=== PATIENT | female | born 1985 | race Caucasian/White ===

== ENCOUNTER → 2019-03-07 18:15 | Observation (INO) ==
[2019-03-07 17:05] LABS: Basophils % 0.2 %; Eosinophils # 0.2 K/mcL (0.0-0.6); Eosinophils % 1.6 %; Hematocrit 32.4 % (35.3-44.9); Immature Granulocytes % 0.4 % (0-4); Lymphocytes # 2.1 K/mcL (0.6-4.6); Lymphocytes % 17.7 %; Mean Corpuscular Hemoglobin 26.6 pg (28.0-33.3); Mean Corpuscular Volume 78.5 fL (83.0-100.0); Monocytes # 0.5 K/mcL (0.0-1.3); Monocytes % 4.3 %; Neutrophils # 8.8 K/mcL (1.6-8.9); Platelet Count 356 K/mcL (140-400); Red Blood Count 4.13 M/mcL (3.82-4.97); Red Cell Distribution Width 13.6 % (11.5-14.5); Segmented Neutrophils % 75.8 %
[2019-03-07 17:22] LABS: Alanine Aminotransferase 16 Units/L (7-52); Aspartate Amino Transferase 15 Units/L (13-39); BUN/Creatinine Ratio 14 (6-26); Blood Urea Nitrogen 10 mg/dL (6-20); Lactate Dehydrogenase 108 Units/L (140-271); Uric Acid 4.7 mg/dL (2.3-7.6); eGFR For Non-African Americans > 60 (> 60)
[2019-03-07 17:26] LABS: Amphetamine Screen,Urine Negative ng/mL (Cutoff=1000); Barbiturate Screen,Urine Negative ng/mL (Cutoff=200); Benzodiazepines Screen,Urine Negative ng/mL (Cutoff=200); Cannabinoid Screen,Urine Negative ng/mL (Cutoff = 50); Cocaine Screen,Urine Negative ng/mL (Cutoff= 300); Opiate Screen,Urine Negative ng/mL (Cutoff=300); Phencyclidine Screen,Urine Negative ng/mL (Cutoff=25); Protein/Creatinine Ratio,Urine 0.16 mg/mg (0.00-0.20)
--- NOTE | 2019-03-07 17:42 | Discharge Summary ---
Date of Encounter: 03/07/19 Time of Encounter: 17:44 - Discharge Diagnosis (1) 32 weeks gestation of Priority: Primary Status: Acute Comments: Admitted to observation from office for [facility] evaluation due to elevated BP today. (2) NST (non-stress test) reactive Priority: Secondary Status: Acute Comments: FHR 150 bpm, moderate variability, +15x15 accels, no decels. (3) Elevated blood pressure affecting in third trimester, antepartum Priority: Secondary Status: Acute Comments: Pre-E evaluation - Discharge Medications Prescriptions: No Action Sertraline [Zoloft] 100 mg PO DAILY Albuterol Sulfate [Albuterol Inhaler] 0 puff IH Q4HR Vits96/Iron Fum/Folic [ Tablet] 1 each PO DAILY Potassium Chloride [Klor-Con 10] 10 meq PO BID Pantoprazole Sodium [Protonix] 40 mg PO BID Metformin HCl 500 mg PO DAILY Loratadine [Allergy Relief] 10 mg PO DAILY Levothyroxine [Synthroid] 50 mcg PO DAILY Labetalol HCl 100 mg PO BID Ferrous Sulfate [Iron] 325 mg PO DAILY Cetirizine HCl [Allergy Relief] 10 mg PO DAILY Budesonide [Pulmicort Flexhaler 90mcg] 90 mcg IH BID Aspirin [Adult Aspirin] 81 mg PO DAILY Home Medications: Albuterol Sulfate [Albuterol Inhaler] 0 puff IH Q4HR 03/07/19 [History] Aspirin [Adult Aspirin] 81 mg PO DAILY 03/07/19 [History] Budesonide [Pulmicort Flexhaler 90mcg] 90 mcg IH BID 03/07/19 [History] Cetirizine HCl [Allergy Relief] 10 mg PO DAILY 03/07/19 [History] Ferrous Sulfate [Iron] 325 mg PO DAILY 03/07/19 [History] Labetalol HCl 100 mg PO BID 03/07/19 [History] Levothyroxine [Synthroid] 50 mcg PO DAILY 03/07/19 [History] Loratadine [Allergy Relief] 10 mg PO DAILY 03/07/19 [History] Metformin HCl 500 mg PO DAILY 03/07/19 [History] Pantoprazole Sodium [Protonix] 40 mg PO BID 03/07/19 [History] Potassium Chloride [Klor-Con 10] 10 meq PO BID 03/07/19 [History] Vits96/Iron Fum/Folic [ Tablet] 1 each PO DAILY 03/07/19 [History] Sertraline [Zoloft] 100 mg PO DAILY 03/07/19 [History] Allergies/Adverse Reactions: Allergy/AdvReac Type Severity Reaction Status Date / Time No Known Allergies Allergy Verified 03/07/19 16:46 Data Procedures and tests throughout hospitalization: Laboratory Tests 03/07/19 03/07/19 03/07/19 16:26 16:26 16:46 WBC 11.6 H RBC 4.13 Hgb 11.0 L Hct 32.4 L MCV 78.5 L MCH 26.6 L MCHC 34.0 RDW 13.6 Plt Count 356 MPV 10.0 Immature Gran % 0.4 Seg Neutrophils % 75.8 Lymphocytes % 17.7 Monocytes % 4.3 Eosinophils % 1.6 Basophils % 0.2 Neutrophils # 8.8 Lymphocytes # 2.1 Monocytes # 0.5 Eosinophils # 0.2 Basophils # 0.0 BUN Creatinine Est GFR ( Amer) Est GFR (Non-Af Amer) BUN/Creatinine Ratio Uric Acid AST ALT Lactate Dehydrogenase Urine Creatinine 149 Protein/Creatinin Ratio 0.16 Urine Total Protein 24 H Urine Opiates Screen Negative Ur Barbiturates Screen Negative Ur Phencyclidine Scrn Negative Ur Amphetamines Screen Negative U Benzodiazepines Scrn Negative Urine Cocaine Screen Negative U Marijuana (THC) Screen Negative Ur Drug Screen Interp See Below 03/07/19 16:46 WBC RBC Hgb Hct MCV MCH MCHC RDW Plt Count MPV Immature Gran % Seg Neutrophils % Lymphocytes % Monocytes % Eosinophils % Basophils % Neutrophils # Lymphocytes # Monocytes # Eosinophils # Basophils # BUN 10 Creatinine 0.73 Est GFR ( Amer) > 60 Est GFR (Non-Af Amer) > 60 BUN/Creatinine Ratio 14 Uric Acid 4.7 AST 15 ALT 16 Lactate Dehydrogenase 108 L Urine Creatinine Protein/Creatinin Ratio Urine Total Protein Urine Opiates Screen Ur Barbiturates Screen Ur Phencyclidine Scrn Ur Amphetamines Screen U Benzodiazepines Scrn Urine Cocaine Screen U Marijuana (THC) Screen Ur Drug Screen Interp Labs on day of discharge: Labs from last 24 hours 03/07/19 03/07/19 03/07/19 16:46 16:46 16:26 WBC 11.6 H RBC 4.13 Hgb 11.0 L Hct 32.4 L MCV 78.5 L MCH 26.6 L MCHC 34.0 RDW 13.6 Plt Count 356 MPV 10.0 Immature Gran % 0.4 Seg Neutrophils % 75.8 Lymphocytes % 17.7 Monocytes % 4.3 Eosinophils % 1.6 Basophils % 0.2 Neutrophils # 8.8 Lymphocytes # 2.1 Monocytes # 0.5 Eosinophils # 0.2 Basophils # 0.0 BUN 10 Creatinine 0.73 Est GFR ( Amer) > 60 Est GFR (Non-Af Amer) > 60 BUN/Creatinine Ratio 14 Uric Acid 4.7 AST 15 ALT 16 Lactate Dehydrogenase 108 L Urine Creatinine 149 Protein/Creatinin Ratio 0.16 Urine Total Protein 24 H Urine Opiates Screen Ur Barbiturates Screen Ur Phencyclidine Scrn Ur Amphetamines Screen U Benzodiazepines Scrn Urine Cocaine Screen U Marijuana (THC) Screen Ur Drug Screen Interp 03/07/19 16:26 WBC RBC Hgb Hct MCV MCH MCHC RDW Plt Count MPV Immature Gran % Seg Neutrophils % Lymphocytes % Monocytes % Eosinophils % Basophils % Neutrophils # Lymphocytes # Monocytes # Eosinophils # Basophils # BUN Creatinine Est GFR ( Amer) Est GFR (Non-Af Amer) BUN/Creatinine Ratio Uric Acid AST ALT Lactate Dehydrogenase Urine Creatinine Protein/Creatinin Ratio Urine Total Protein Urine Opiates Screen Negative Ur Barbiturates Screen Negative Ur Phencyclidine Scrn Negative Ur Amphetamines Screen Negative U Benzodiazepines Scrn Negative Urine Cocaine Screen Negative U Marijuana (THC) Screen Negative Ur Drug Screen Interp See Below Date of admission: 03/07/19 16:04 Discharging clinician: Izabela Rodriguez Anticipated date of discharge: 03/07/19 - Patient Status Disposition: Home, Self-Care Condition: Good Functional capacity at discharge: independent ambulation Overall status at discharge: patient is progressing back to baseline - Discharge Instructions - Diet and Activity Activity: resume usual activities as tolerated Diet: regular diet Hospital Course [employer] Hospital course: Patient was sent from the office for a preeclampsia evaluation due to elevated blood pressure in the office. She has chronic hypertensive and currently on labetalol 100 mg by mouth twice a day. She denies any signs symptoms of elevated blood pressure. She reports positive movement, denies vaginal bleeding and fluid leakage. Blood pressures and labs were reviewed with Dr. [place] and patient is to be discharged home. She is to follow-up at the office as scheduled next week. Time Attestation: Total time spent providing and/or coordinating discharge services: Time Spent: Less than 30 minutes Exam - Constitutional General appearance IM: A&O X 3, pleasant, no acute distress, answers questions appropriately - Respiratory Respiratory exam: Present: CTAB - Cardiovascular Cardiovascular exam IM: Present: RRR, +S1, +S2 - GI/Abdominal GI/Abdominal exam IM: normal bowel sounds, soft - Rectal Rectal exam: deferred - External exam: normal external exam - Extremities Exam Extremities exam IM: Present: full ROM, normal capillary refill, normal inspection - Neurological Exam Neurological exam: alert, normal gait, oriented X3 - VTE Reasons for not Prescribing Prophylaxis: Treatment not Indicated - Low risk for VTE
== END | disposition home or self-care (01) ==
LOC: 1NENULAB
PROVIDERS: ADMIT Registered Nurse; ATTEND Registered Nurse

== ENCOUNTER → 2019-03-30 20:08 | Observation (INO) ==
[2019-03-30 17:34] LABS: Basophils % 0.2 %; Eosinophils # 0.1 K/mcL (0.0-0.6); Eosinophils % 1.2 %; Hematocrit 33.5 % (35.3-44.9); Hemoglobin 11.3 g/dL (11.5-15.4); Immature Granulocytes % 0.4 % (0-4); Lymphocytes % 17.6 %; Mean Corpuscular HGB Conc 33.7 g/dL (31.6-35.5); Mean Corpuscular Hemoglobin 27.2 pg (28.0-33.3); Mean Corpuscular Volume 80.5 fL (83.0-100.0); Mean Platelet Volume 10.3 fL (9.4-12.4); Monocytes # 0.4 K/mcL (0.0-1.3); Monocytes % 3.8 %; Neutrophils # 8.6 K/mcL (1.6-8.9); Platelet Count 329 K/mcL (140-400); Red Blood Count 4.16 M/mcL (3.82-4.97); Red Cell Distribution Width 14.1 % (11.5-14.5); Segmented Neutrophils % 76.8 %
[2019-03-30 17:40] LABS: Amphetamine Screen,Urine Negative ng/mL (Cutoff=1000); Barbiturate Screen,Urine Negative ng/mL (Cutoff=200); Benzodiazepines Screen,Urine Negative ng/mL (Cutoff=200); Cannabinoid Screen,Urine Negative ng/mL (Cutoff = 50); Cocaine Screen,Urine Negative ng/mL (Cutoff= 300); Opiate Screen,Urine Negative ng/mL (Cutoff=300); Phencyclidine Screen,Urine Negative ng/mL (Cutoff=25); Protein/Creatinine Ratio,Urine 0.16 mg/mg (0.00-0.20)
[2019-03-30 17:51] LABS: Alanine Aminotransferase 26 Units/L (7-52); Aspartate Amino Transferase 22 Units/L (13-39); BUN/Creatinine Ratio 19 (6-26); Blood Urea Nitrogen 11 mg/dL (6-20); Lactate Dehydrogenase 147 Units/L (140-271); Uric Acid 5.9 mg/dL (2.3-7.6); eGFR For Non-African Americans > 60 (> 60)
--- NOTE | 2019-03-30 20:05 | OB/GYN Progress Note ---
Date of Encounter: 03/30/19 Time of Encounter: 20:03 - Assessment and Plan (1) Elevated blood pressure affecting in third trimester, antepartum Current Visit: No Status: Acute PIH labs negative, normotensive in triage. No change on serial cervical exams. Discharged home with labor and when to return to triage precautions. Patient verbalizes understanding. Plan of care discussed with Dr. Prieto (2) NST (non-stress test) reactive Current Visit: No Status: Acute (3) 35 weeks gestation of Current Visit: Yes Status: Acute Subjective - Subjective Interval history: 35+ weeks gestation presents to triage from office with elevated blood pressures. Patient with elevated blood pressures in office, denies headache visual changes or right upper quadrant pain. Reports good movement, and contractions, denies vaginal bleeding or leaking of fluid. Antepartum ROS: movement normal, contractions, no loss of fluid, no vaginal bleeding Objective - Vital Signs Vital Signs: Intake and Output 03/30/19 03/30/19 03/30/19 07:59 15:59 23:59 Other: Weight 136.078 kg Patient Weight 03/30/19 23:59 Weight 136.078 kg - Exam FHR: auscultation normal FHR comments: Baseline 125 Abdomen: Present: soft, gravid Cervical dilation: /-3 - Labs Labs: Abnormal lab results WBC 11.2 K/mcL (4.3-11.1) H 03/30/19 17:00 Hgb 11.3 g/dL (11.5-15.4) L 03/30/19 17:00 Hct 33.5 % (35.3-44.9) L 03/30/19 17:00 MCV 80.5 fL (83.0-100.0) L 03/30/19 17:00 MCH 27.2 pg (28.0-33.3) L 03/30/19 17:00 0.58 mg/dL (0.60-1.20) L 03/30/19 17:00
== END | disposition home or self-care (01) ==
LOC: 1NENULAB
PROVIDERS: ADMIT Advanced Practice Midwife; ATTEND Advanced Practice Midwife